=== PATIENT | female | born 1995 | race Caucasian/White ===

== ENCOUNTER 2023-09-05 10:56 | Emergency (ER) | payer BC ==
[2023-09-05 11:22] LABS: BASOPHILS ABSOLUTE AUTO 0.03 K/uL (0.00-0.20); BASOPHILS PERCENT AUTO 0.2 % (0.0-1.0); EOSINOPHILS ABSOLUTE AUTO 0.13 K/uL (0.00-0.45); EOSINOPHILS PERCENT AUTO 0.8 % (0.0-6.0); HEMATOCRIT 46.1 % (37.0-47.0); HEMOGLOBIN 16.3 g/dL (12.0-16.0); IMMATURE GRAN ABSOLUTE AUTO 0.05 K/uL (0.00-0.05); IMMATURE GRAN PERCENT AUTO 0.3 % (0.0-0.4); LYMPHOCYTES ABSOLUTE AUTO 0.83 K/uL (1.00-4.80); LYMPHOCYTES PERCENT AUTO 5.1 % (24.0-44.0); MEAN CORPUSCULAR HEMOGLOBIN 31.2 pg (28.0-32.0); MEAN CORPUSCULAR HGB CONC 35.4 g/dL (32.0-36.0); MEAN CORPUSCULAR VOLUME 88.1 fL (83.0-99.0); MEAN PLATELET VOLUME 10.5 fL (9.4-12.3); MONOCYTES ABSOLUTE AUTO 0.49 K/uL (0.00-0.80); NEUTROPHILS ABSOLUTE AUTO 14.66 K/uL (1.80-7.70); NEUTROPHILS PERCENT AUTO 90.6 % (41.0-71.0); PLATELET COUNT,PLT 215 K/uL (150-400); RED BLOOD CELL COUNT 5.23 M/uL (4.10-5.30); WHITE BLOOD CELL COUNT,WBC 16.19 K/uL (3.9-11.3)
[2023-09-05] MEDS: Ketorolac 30 MG/ML SDV IVPUSH ONE (11:22)
[2023-09-05] MEDS: Ondansetron 4 MG/2 ML SDV IVPUSH ONE ×2 (11:27→14:22)
[2023-09-05 11:55] LABS: A/G RATIO 0.9 (0.9-1.6); ALBUMIN 3.9 g/dL (3.4-5.0); BILIRUBIN TOTAL 0.5 mg/dL (0.2-1.0); CALCIUM 9.2 mg/dL (8.5-10.1); CARBON DIOXIDE,CO2 21.1 mmol/L (21.0-32.0); EST CRCL DRUG DOSING (CG) 62.07 mL/min; POTASSIUM,K 4.4 mmol/L (3.5-5.1); PROTEIN TOTAL,TP 8.3 g/dL (6.4-8.2)
[2023-09-05] MEDS: Iopamidol 755 MG/ML 500 ML Multipack Bottle IVPUSH STA (12:23)
[2023-09-05] MEDS: Sodium Chloride 0.9% 1,000 ML IV STA (13:03)
[2023-09-05] MEDS: Morphine 4 MG/ML Syringe IVPUSH ONE (13:38)
[2023-09-05] MEDS: diphenhydrAMINE 50 MG/ML SDV IVPUSH ONE (13:46)
[2023-09-05] MEDS: diphenhydrAMINE 50 MG/ML SDV ONE (13:46)
== END 2023-09-05 14:30 | disposition home or self-care (01) ==
LOC: MW.ED 10:56
DX: K80.50 Calculus of bile duct without cholangitis or cholecystitis without obstruction (principal); Z79.899 Other long term (current) drug therapy; Z88.0 Allergy status to penicillin; Z88.1 Allergy status to other antibiotic agents
CPT/HCPCS: 36415; 74177; 76705; 80053; 81025; 83690; 85025; 96361; 96374; 96375; 96376; 99284; J1200; J1885; J2270; J2405; J7030; Q9967

== ENCOUNTER 2023-09-07 08:42 | Emergency (ER) | payer BC ==
[2023-09-07 09:15] LABS: BASOPHILS ABSOLUTE AUTO 0.02 K/uL (0.00-0.20); BASOPHILS PERCENT AUTO 0.3 % (0.0-1.0); EOSINOPHILS ABSOLUTE AUTO 0.15 K/uL (0.00-0.45); HEMATOCRIT 40.6 % (37.0-47.0); IMMATURE GRAN ABSOLUTE AUTO 0.01 K/uL (0.00-0.05); IMMATURE GRAN PERCENT AUTO 0.1 % (0.0-0.4); LYMPHOCYTES ABSOLUTE AUTO 1.15 K/uL (1.00-4.80); LYMPHOCYTES PERCENT AUTO 15.4 % (24.0-44.0); MEAN CORPUSCULAR HEMOGLOBIN 30.4 pg (28.0-32.0); MEAN CORPUSCULAR HGB CONC 34.5 g/dL (32.0-36.0); MEAN CORPUSCULAR VOLUME 88.3 fL (83.0-99.0); MEAN PLATELET VOLUME 10.6 fL (9.4-12.3); MONOCYTES PERCENT AUTO 6.7 % (0.0-8.0); NEUTROPHILS ABSOLUTE AUTO 5.65 K/uL (1.80-7.70); NEUTROPHILS PERCENT AUTO 75.5 % (41.0-71.0); PLATELET COUNT,PLT 185 K/uL (150-400); WHITE BLOOD CELL COUNT,WBC 7.48 K/uL (3.9-11.3)
[2023-09-07] MEDS: Sodium Chloride 0.9% 1,000 ML IV ONE (09:25)
[2023-09-07] MEDS: HYDROmorphone 0.5 MG/0.5 ML Syringe IVPUSH ONE (09:26)
[2023-09-07] MEDS: Ondansetron 4 MG/2 ML SDV IVPUSH ONE (09:26)
[2023-09-07] MEDS: Ketorolac 30 MG/ML SDV IVPUSH ONE (09:26)
[2023-09-07] MEDS: Morphine 4 MG/ML Syringe IVPUSH ONE (09:34)
[2023-09-07 09:36] LABS: A/G RATIO 0.8 (0.9-1.6); ALANINE AMINOTRANSFERASE,ALT 29 IU/L (14-63); ALBUMIN 3.4 g/dL (3.4-5.0); ALKALINE PHOSPHATASE 70 U/L (46-116); ASPARTATE AMNIOTRANSFERASE,AST 25 IU/L (15-37); BILIRUBIN TOTAL 0.4 mg/dL (0.2-1.0); BLOOD UREA NITROGEN,BUN 10 mg/dL (7.0-18.0); CALCIUM 8.6 mg/dL (8.5-10.1); CARBON DIOXIDE,CO2 23.4 mmol/L (21.0-32.0); CHLORIDE,CL 104 mmol/L (98-107); GLUCOSE RANDOM 90 mg/dL (74-106); LIPASE 27 U/L (16-77); POTASSIUM,K 3.9 mmol/L (3.5-5.1); PROTEIN TOTAL,TP 7.6 g/dL (6.4-8.2); SODIUM,NA 138 mmol/L (136-145)
[2023-09-07 09:40] LABS: ESTIMATED GFR 78 mL/min (>60)
== END 2023-09-07 10:19 | disposition home or self-care (01) ==
LOC: MW.ED 08:42
DX: K80.20 Calculus of gallbladder without cholecystitis without obstruction (principal); Z88.1 Allergy status to other antibiotic agents; Z88.5 Allergy status to narcotic agent; Z79.899 Other long term (current) drug therapy; Z75.8 Other problems related to medical facilities and other health care
CPT/HCPCS: 36415; 76705; 80053; 83690; 83735; 84703; 85025; 96361; 96374; 96375; 99284; J1170; J1885; J2405; J7030

== ENCOUNTER 2023-09-09 11:34 | Day surgery (SDC) | payer BC ==
[~2023-09-09 11:34] MED LIST: Acetaminophen 1,000 MG in Premix Bag 1 BAG IV SCH; Albuterol 0.083% 2.5 MG/3 ML Neb Soln NEB PRN; HYDROmorphone 1 MG/ML Syringe IVPUSH PRN; Metoclopramide 10 MG/2 ML SDV IVPUSH PRN; Morphine 2 MG/ML SYRINGE IVPUSH PRN; Naloxone 0.4 MG/ML SDV IVPUSH PRN; Ondansetron 4 MG/2 ML SDV IVPUSH PRN; droPERidol 5 MG/2 ML SDV IVPUSH PRN
[2023-09-09] MEDS ORDERED: Dexamethasone 4 MG/ML 5 ML MDV ONE (12:16)
[2023-09-09] MEDS ORDERED: Ketorolac 30 MG/ML SDV ONE (12:16)
[2023-09-09] MEDS ORDERED: fentaNYL 100 MCG/2 ML SDV ONE (12:16)
[2023-09-09] MEDS ORDERED: Lidocaine 2% 5 ML SDV ONE (12:16)
[2023-09-09] MEDS ORDERED: Sugammadex Sodium 200 MG/2 ML VIAL IV ONE (12:16)
[2023-09-09] MEDS ORDERED: Ondansetron 4 MG/2 ML SDV ONE ×2 (12:16→15:40)
[2023-09-09] MEDS ORDERED: Propofol 200 MG/20 ML SDV ONE (12:16)
[2023-09-09] MEDS ORDERED: Rocuronium Bromide 50 MG/5 ML Syringe ONE (12:16)
[2023-09-09] MEDS ORDERED: Midazolam 1 MG/ML 2 ML SDV ONE (12:17)
[2023-09-09] MEDS ORDERED: Indocyanine Green 25 MG SDV ONE (12:17)
[2023-09-09] MEDS: Lactated Ringers 1,000 ML IV SCH (12:32)
[2023-09-09] MEDS: Scopalamine 1mg/3day Transdermal Patch TOP ONE (12:32)
[2023-09-09] MEDS ORDERED: Bupivacaine 0.25% 30 ML SDV ONE ×2 (12:43→13:27)
[2023-09-09] MEDS: Pregabalin 75 MG Cap PO SCH (12:45)
[2023-09-09] MEDS ORDERED: EPINEPHrine 1 MG/1 ML Amp ONE (13:27)
[2023-09-09] MEDS ORDERED: Ropivacaine 0.5% 5 MG/ML 30 ML SDV ONE (13:27)
[2023-09-09] MEDS ORDERED: ceFAZolin 2 GM Vial ONE (13:46)
[2023-09-09] MEDS ORDERED: Ketamine 500 mg/10 ML MDV ONE (13:58)
[2023-09-09] MEDS ORDERED: Phenylephrine HCl In 0.9% NaCl 1 MG/10 ML Syringe ONE (14:06)
[2023-09-09] MEDS ORDERED: ceFAZolin 2 GM in Sodium Chloride 0.9% 50 ML IV ONE (14:14)
[2023-09-09] MEDS ORDERED: HYDROmorphone 2 MG/ML Syringe ONE (15:26)
[2023-09-09] MEDS: fentaNYL 50 MCG/ML SDV IVPUSH PRN (16:01)
== END 2023-09-09 17:45 | disposition home or self-care (01) ==
LOC: MW.SDS 11:34
PROVIDERS: ATTEND Surgery
DX: K80.10 Calculus of gallbladder with chronic cholecystitis without obstruction (principal); F41.9 Anxiety disorder, unspecified; J45.909 Unspecified asthma, uncomplicated; Z79.899 Other long term (current) drug therapy
CPT/HCPCS: 47563; 64488; 81025; A9270; J0131; J0171; J0665; J0690; J1100; J1170; J1885; J2250; J2371; J2405; J2704; J2795; J3010; J3490; J7120; 00790

== ENCOUNTER 2024-01-02 10:51 | Emergency (ER) | payer BC, OTHER ==
[2024-01-02] MEDS: Famotidine 20 MG/2 ML SDV IVPUSH ONE (10:59)
[2024-01-02] MEDS: Sodium Chloride 0.9% 1,000 ML IV ONE (10:59)
[2024-01-02] MEDS: diphenhydrAMINE 50 MG/ML SDV IVPUSH ONE (10:59)
[2024-01-02] MEDS: methylPREDNISolone Sodium Succinate 125 MG/2 ML SDV IVPUSH ONE (10:59)
[2024-01-02] MEDS: diphenhydrAMINE 50 MG/ML SDV ONE (11:01)
[2024-01-02] MEDS: EPINEPHrine 1 MG/1 ML Amp ONE (11:01)
[2024-01-02] MEDS: methylPREDNISolone Sodium Succinate 125 MG/2 ML SDV ONE (11:01)
[2024-01-02] MEDS: Famotidine 20 MG/2 ML SDV ONE (11:01)
[2024-01-02] MEDS: hydrOXYzine HCl 25 MG Tab PO ONE ×2 (12:30→13:47)
== END 2024-01-02 13:53 | disposition home or self-care (01) ==
LOC: MW.ED 10:51
DX: T78.40XA Allergy, unspecified, initial encounter (principal); J45.909 Unspecified asthma, uncomplicated; E66.9 Obesity, unspecified; Z68.42 Body mass index [BMI] 45.0-49.9, adult; Z79.899 Other long term (current) drug therapy; Z88.1 Allergy status to other antibiotic agents; Z88.5 Allergy status to narcotic agent; Z75.8 Other problems related to medical facilities and other health care
CPT/HCPCS: 96374; 96375; 99282; A9270; J1200; J2919; J3490; J7030; 99284